=== PATIENT | male | born 1980 | race Caucasian/White ===

== ENCOUNTER 2022-04-02 12:10 | Emergency (ER) | payer SELFPAY ==
[~2022-04-02] VITALS: Ht 185.4 cm; Wt 106.8 kg
[2022-04-02 12:16] VITALS: BP 144/94
--- NOTE | 2022-04-02 12:54 | NUR ---
PT AMB TO [facility]
--- NOTE | 2022-04-02 13:13 | NUR ---
Patient being evaluated by DR HIGGINS at TRIAGE ROOM.
[2022-04-02] MEDS ORDERED: ACYCLOVIR 200 MG CAP PO ONE ×2 (13:20→13:25)
[2022-04-02] MEDS ORDERED: HYDROcodone/APAP 5/325 MG 1 TAB TAB PO ONE (13:20)
[2022-04-02] MEDS ORDERED: predniSONE 20 MG TAB PO ONE (13:20)
[2022-04-02] MEDS ORDERED: FLUORESCEIN OPTH STRIP 1 MG OP ONE (13:20)
[2022-04-02] MEDS ORDERED: TETRACAINE HCL/PF 0.5% OPTH 4 ML BTL OP ONE (13:20)
--- NOTE | 2022-04-02 13:34 | NUR ---
PT AMB TO BED 7
--- NOTE | 2022-04-02 14:40 | NUR ---
42YO MALE PT C/O FACIAL RASH X1 WEEK. PT PRESENTS WITH REDDENED RASH SPOTS FROM R [place] TO R [place] OF FACE. PT STATES RASH INITIALLY STARTED ONE SPOT AND HAVE SPREAD OVER THE WEEK. PT REPORTS ITCHYNESS THAT CAN TURN TO ACHING 9/10 PAIN. PT DENIES TAKING MEDICATION TO RELIEF DISCOMFORT.SITE NON TENDER TO TOUCH. DENIES CHEST PAIN, N/V/D OR FEVERS. PT NOTES MOM HAD SHINGLES ABOUT 2-3 WEEKS AGO. PT ALSO C/O OF R EYE PAIN X1 WEEK AND STATES OCCASIONAL GREEN THICK DISCHARGE. EYE PRESENTS REDDENED WITH MILD SWELLING IN EYES LIDS, NO DISCHARGE AT THIS TIME. PT ABLE TO MOVE EYES AT EASE. DENIES TX FOR EYE. PT AAOX4, NO VISIBLE DISTRESS. RESPIRATIONS EVEN AND UNLABORED. HX: DENIES NKA
[2022-04-02] MEDS ORDERED: ACYC-278 PO (15:11)
[2022-04-02] MEDS ORDERED: PRED10TA5 PO (15:11)
[2022-04-02] MEDS ORDERED: TRAM50TA3 PO (15:11)
--- NOTE | 2022-04-02 15:23 | NUR ---
Patient discharged with v/s stable. Written and verbal after care instructions FOR SHINGLES given and explained. Patient alert, oriented and verbalized understanding of instructions. Ambulatory with steady gait. All questions addressed prior to discharge. ID band removed. Patient advised to follow up with PMD. Rx of ACYCLOVIR, TRAMADOL, AND PREDNISONE given. Opportunity to ask questions provided and answered.
--- NOTE | 2022-04-02 16:44 | NUR ---
The patient's care was reviewed and supervised by Socorro Sánchez, RN, RN.
== END 2022-04-02 15:23 | disposition home or self-care (01) ==
LOC: MED 12:10
DX: B02.39 Other herpes zoster eye disease (principal); F17.200 Nicotine dependence, unspecified, uncomplicated
CPT/HCPCS: 99284; J7512